=== PATIENT | male | born 1955 | race African-American/Black ===

== ENCOUNTER 2019-06-05 11:27 | Outpatient (CLI) | payer OTHER, SELFPAY ==
[2019-06-05 12:21] LABS: Uric Acid 9.1 mg/dL (3.5-8.5)
== END 2019-06-05 11:28 | disposition home or self-care (01) ==
PROVIDERS: PCP Internal Medicine; Visit Provider Nurse Practitioner
DX: M79.641 Pain in right hand (principal)
CPT/HCPCS: 36415; 84550

== ENCOUNTER 2019-06-25 10:39 | Outpatient (CLI) | payer OTHER, SELFPAY ==
--- NOTE | ~2019-06-25 | XR_ITS ---
EXAMINATION: XR chest 2V EXAM DATE: 06/25/2019 11:09 INDICATION: Cough. TECHNIQUE: Frontal and lateral projections of the chest obtained and reviewed. Comparison is made to prior examination from 01/06/2016. FINDINGS: The lungs are clear. There are no pleural effusions. Mild cardiomegaly. There is no pneumo thorax suspected. The bones and soft tissues are unremarkable. IMPRESSION: Mild cardiomegaly. Reviewed, dictated and finalized at location A. ALL STRIPPER IMPRESSION: Mild cardiomegaly.
== END 2019-06-25 10:40 | disposition home or self-care (01) ==
PROVIDERS: PCP Internal Medicine; Visit Provider Internal Medicine
DX: R05 Cough (principal); I51.7 Cardiomegaly
CPT/HCPCS: 71046